=== PATIENT | male | born 1955 | race American Indian/Alaskan Native ===

== ENCOUNTER 2018-07-15 13:39 | Emergency (ER) | payer OTHER ==
--- NOTE | 2018-07-15 13:49 | Emergency Department Report ---
ED Chest Pain HPI - General Stated Complaint: CHARLIE/CHEST PAIN Time Seen by Provider: 07/15/18 13:41 Source: patient, EMS Mode of arrival: Stretcher Limitations: No Limitations - History of Present Illness Initial Comments: Patient is a 63-year-old male that presents emergency room with complaints of chest pain shortness of breath 3 days. Patient states he does have a past medi jin history except for he is a smoker. Patient denies fever and chills. Patient denies injury to the area. Patient states her pain is in the center of his chest and is nonradiating. Patient states he is having difficulty breathing. Patient states symptoms are better with rest and worse with exe rtion. Complaint: chest pain, other (sob) -: Sudden, days(s) Onset: during rest Pain Location: substernal Pain Radiation: none Severity: severe Severity scale (0 -10): 8 Quality: heaviness, sharp Consistency: constant Improves With: rest Worsens With: exertion re: dyspnea. denies: nausea, vomting, diaphoresis, sense of impending doom Other Symptoms: denies: cough, fever, syncope, rash, acid taste in mouth, leg swelling, palpitations, burping Treatments Prior to Arrival: none Aspirin use within the Past 7 Days: (0) No - Related Data On Oral Contraceptives: No Previous Rx's Medication Instructions Recorded Last Taken Type ALBUTEROL Inhaler(NF) [VENTOLIN 2 puff IH Q4H PRN #1 inha 02/01/18 Unknown Rx Inhaler(NF)] Azithromycin [Zithromax Z-SIN] 250 mg PO DAILY #6 tab 02/01/18 Unknown Rx Benzonatate [Tessalon Perles] 200 mg PO Q8HR PRN #30 capsule 02/01/18 Unknown Rx Ibuprofen [Ibuprofen 800] 800 mg PO TID PRN #30 tablet 02/01/18 Unknown Rx predniSONE [Deltasone] 40 mg PO QDAY 5 Days #10 tab 02/01/18 Unknown Rx Allergies Allergy/AdvReac Type Severity Reaction Status Date / Time codeine Allergy Swelling Verified 02/01/18 17:06 Heart Score - HEART Score History: Slightly suspicious EKG: Normal Age: 45-65 Risk factors: 1-2 risk factors Troponin: < normal limit HEART Score: 2 ED Review of Systems ROS: Stated complaint: CHARLIE/CHEST PAIN Other details as noted in HPI Constitutional: denies: chills, fever Eyes: denies: eye pain, eye discharge, vision change ENT: denies: ear pain, throat pain Respiratory: shortness of breath. denies: cough, wheezing Cardiovascular: chest pain. denies: palpitations Endocrine: no symptoms reported Gastrointestinal: denies: abdominal pain, nausea, diarrhea Genitourinary: denies: urgency, dysuria Musculoskeletal: denies: back pain, joint swelling, arthralgia Skin: denies: rash, lesions Neurological: denies: headache, weakness, paresthesias Psychiatric: denies: anxiety, depression Hematological/Lymphatic: denies: easy bleeding, easy bruising ED Past Medical Hx - Past Medical History Previous Medical History?: Yes Hx Asthma: Yes - Surgical History Past Surgical History?: Yes Additional Surgical History: L hip replacement x 2. hernia repair. R knee replacment. hydrocele removal - Family History Family history: no significant - Social History Smoking Status: Current Every Day Smoker Substance Use Type: None - Medications Home Medications: Home Medications Medication Instructions Recorded Confirmed Last Taken Type ALBUTEROL Inhaler(NF) [VENTOLIN 2 puff IH Q4H PRN #1 inha 02/01/18 Unknown Rx Inhaler(NF)] Azithromycin [Zithromax Z-SIN] 250 mg PO DAILY #6 tab 02/01/18 Unknown Rx Benzonatate [Tessalon Perles] 200 mg PO Q8HR PRN #30 capsule 02/01/18 Unknown R x Ibuprofen [Ibuprofen 800] 800 mg PO TID PRN #30 tablet 02/01/18 Unknown Rx predniSONE [Deltasone] 40 mg PO QDAY 5 Days #10 tab 02/01/18 Unknown Rx ED Physical Exam - General Limitations: No Limitations General appearance: alert, in no apparent distress - Head Head exam: Present: atraumatic, normocephalic - Eye Eye exam: Present: normal appearance, PERRL Pupils: Present: normal accommodation - ENT ENT exam: Present: mucous membranes moist - Neck Neck exam: Present: normal inspection - Respiratory Respiratory exam: Present: normal lung sounds bilaterally. Absent: respiratory distress - Cardiovascular Cardiovascular Exam: Present: regular rate, normal rhythm. Absent: systolic murmur, diastolic murmur, rubs, gallop - GI/Abdominal GI/Abdominal exam: Present: soft, normal bowel sounds. Absent: distended, tenderness, guarding, rebound - Rectal Rectal exam: Present: deferred - Extremities Exam Extremities exam: Present: normal inspection - Back Exam Back exam: Present: normal inspection - Neurological Exam Neurological exam: Present: alert, oriented X3 - Psychiatric Psychiatric exam: Present: normal affect, normal mood - Skin Skin exam: Present: warm, dry, intact, normal color. Absent: rash ED Course Vital Signs 07/15/18 07/15/18 13:52 13:57 Temperature 98.6 F 98.6 F Pulse Rate 69 69 Respiratory 18 18 Rate Blood Pressure 141/76 Blood Pressure 141/76 [Left] O2 Sat by Pulse 99 99 Oximetry - Reevaluation(s) Reevaluation #1: Discussed all results with patient. Patient will be admitted to the hospitalist service. Patient agrees to plan of care. 07/15/18 15:14 - Consultations Consultation #1: Hospitalist consulted for admission. Hospitalist to admit patient. Hospitalist to assume care patient. 07/15/18 15:14 ROME score - Rome Score Age > 65: (0) No Aspirin use within the Past 7 Days: (0) No 3 or more CAD Risk Factors: (0) No 2 or more Angina events in past 24 hrs: (0) No Known CAD with more than 50% Stenosis: (0) No Elevated Cardiac Markers: (0) No ST Deviation Greater than 0.5mm: (0) No ROME Score: 0 ED Medical Decision Making - Lab Data Result diagrams: 07/15/18 14:10 07/15/18 14:10 - EKG Data -: EKG Interpreted by [facility] EKG shows normal: sinus rhythm, axis, intervals, QRS complexes, ST-T waves Rate: normal - Radiology Data Radiology results: report reviewed, image reviewed AP CHEST: HISTORY: chest pain AP view of the chest demonstrates a normal mediastinal and cardiac contour with clear lungs and normal bony and soft tissue structures. IMPRESSION: Unremarkable AP chest. - Medical Decision Making Patient is a 63-year-old male that presents emergency room with complaints of chest pain and shortness of breath. Patient is a smoker. Patient was admitted to the hospitalist service. Patient will require rule out ACS. Patient's EKG is negative. Patient just x-ray negative. Patient's initial cardiac workup negative. - Differential Diagnosis acs. cp. sob Critical care attestation.: If time is entered above; I have spent that time in minutes in the direct care of this critically ill patient, excluding procedure time. ED Disposition Clinical Impression: SOB (shortness of breath) Chest pain Qualifiers: Chest pain type: unspecified Qualified Code(s): R07.9 - Chest pain, unspecified Disposition: OP ADMIT IP TO THIS HOSP Is pt being admited?: Yes Does the pt Need Aspirin: No Condition: Critical Referrals: DAVID BARAHONA MD [Primary Care Provider] - 3-5 Days Time of Disposition: 15:15
--- NOTE | 2018-07-15 14:19 | XRay Report ---
AP CHEST: HISTORY: chest pain AP view of the chest demonstrates a normal mediastinal and cardiac contour with clear lungs and normal bony and soft tissue structures. IMPRESSION: Unremarkable AP chest.
[2018-07-15 14:36] LABS: Basophils % (Auto) 0.8 % (0.0-1.8); Eosinophils # (Auto) 0.1 K/mm3 (0.0-0.4); Eosinophils % (Auto) 1.7 % (0.0-4.3); Hematocrit 38.6 % (35.5-45.6); Hemoglobin 13.3 gm/dl (11.8-15.2); Lymphocytes # (Auto) 2.2 K/mm3 (1.2-5.4); Mean Corpuscular HGB Conc 35 % (32-34); Mean Corpuscular Volume 95 fl (84-94); Monocytes # (Auto) 0.4 K/mm3 (0.0-0.8); Platelet Count 223 K/mm3 (140-440); Red Blood Count 4.05 M/mm3 (3.65-5.03); Red Cell Distribution Width 14.8 % (13.2-15.2)
[2018-07-15 14:55] LABS: Alanine Aminotransferase 21 units/L (7-56); Albumin 3.8 g/dL (3.9-5); BUN/Creatinine Ratio 14; Blood Urea Nitrogen 13 mg/dL (9-20); Calcium 8.9 mg/dL (8.4-10.2); Hemolysis Index 3
--- NOTE | 2018-07-15 19:21 | Event Note ---
Date: 07/15/18 63 YO Male with asthma presents to ED for evaluation of Chest pain. Pt seen and evaluated in ED and treated IAW chest pain protocol. Cardiac enzymes, ekg, telemetry were unremarkable. Pt found to have elevated D dimer. CTA Chest found to be negative for PE. Pt medically optimized and found to have atypical chest pain secondary to GERD. Pt treated with PPI therapy. Pt discharged home and instructed to f/u pcp 3-5 days, as well as F/U with Cardiology 3-5 days for further care and evaluation. Exam: - General Limitations: No Limitations General appearance: alert, in no apparent distress - Head Head exam: Present: atraumatic, normocephalic - Eye Eye exam: Present: normal appearance, PERRL Pupils: Present: normal accommodation - ENT ENT exam: Present: mucous membranes moist - Neck Neck exam: Present: normal inspection - Respiratory Respiratory exam: Present: normal lung sounds bilaterally. Absent: respiratory distress - Cardiovascular Cardiovascular Exam: Present: regular rate, normal rhythm. Absent: systolic m urmur, diastolic murmur, rubs, gallop - GI/Abdominal GI/Abdominal exam: Present: soft, normal bowel sounds. Absent: distended, tenderness, guarding, rebound - Rectal Rectal exam: Present: deferred - Extremities Exam Extremities exam: Present: normal inspection - Back Exam Back exam: Present: normal inspection - Neurological Exam Neurological exam: Present: alert, oriented X3 - Psychiatric Psychiatric exam: Present: normal affect, normal mood - Skin Skin exam: Present: warm, dry, intact, normal color. Absent: rash
--- NOTE | 2018-07-15 21:33 | Cat Scan Report ---
PROCEDURE: CT angiogram chest with contrast. TECHNIQUE: Computerized tomographic angiography of the chest was performed after the IV injection of iodinated nonionic contrast including image processing. The image data was postprocessed using 2-di mensional multiplanar reformatted (MPR) and 3-dimensional (MIP and/or volume rendered) techniques. Au tomated exposure control, adjustment of mA and/or kV according to patient size, or iterative reconstr uction dose optimization techniques were utilized. CT DOSE LENGTH PRODUCT: 346.3 mGycm HISTORY: Dyspnea. COMPARISONS: None. FINDINGS: The trachea and central bronchi appear normal. The lungs are clear and well expanded. There are no si gns of pneumonia. There are no pleural effusions. The thoracic aorta has a normal caliber without vincenzo dence of dissection. The pulmonary arteries enhance normally. There are no signs of pulmonary embolis m. There is no mediastinal adenopathy. The heart size is normal. The adrenal glands are not enlarged. The thoracic skeleton appears intact. IMPRESSION: Normal study. This document is electronically signed by Luis Carlos Crawford MD., Jul 15 2018 09:31:03 PM ET
[2018-07-15 21:54] VITALS: BP 156/75
== END 2018-07-15 21:50 | disposition admitted as inpatient to this hospital (09) ==
LOC: ED 13:39
DX: R07.89 Other chest pain (principal); R06.02 Shortness of breath; J45.909 Unspecified asthma, uncomplicated; F17.200 Nicotine dependence, unspecified, uncomplicated; Z96.651 Presence of right artificial knee joint; Z88.6 Allergy status to analgesic agent
CPT/HCPCS: 36415; 71045; 71275; 80053; 84484; 85025; 85379; 93005; 93010; 99285; Q9967